=== PATIENT | female | born 1960 | race Caucasian/White ===

== ENCOUNTER 2024-08-02 13:14 | Outpatient (AMB) | payer MEDICAID, SELFPAY ==
[2024-08-02 13:29] VITALS: BP 153/96; PULSE 107; RESP 20; TEMP 36.4; O2SAT 96; BMI 36.7
--- NOTE | 2024-08-02 13:29 | ORTHONT_ITS ---
Vital signs 08/02/24 13:29 Height 1.55 m Height Method Stated Weight 88.139 kg Weight Measurement Method Standing Scale BMI 36.7 BP 153/96 H Blood Pressure Source Automatic Cuff Blood Pressure Location Right Upper Arm Position Sitting Respiration 20 Pulse 107 H Pulse Source Monitor Temp 97.5 F Temp Source Temporal Artery Scan Pulse Oximetry (%) 96 Oxygen Delivery Method Room Air Med/Allergies Allergies & Medications Allergies No Known Drug Allergies Allergy (Verified 08/02/24 13:31) Medication Reconciliation Unobtainable 08/02/24 [History Confirmed 08/02/24] Exam Exam Patient is a 63-year-old female who is in significant distress. She is extremely agitated and has pressured speech. She is very uncomfortable. She is in tears. She is using a walker and is hunched over quite a bit. Left hip is tender to palpation. Any rotation elicits significant pain. She is shortened on the left. Last x-rays are multiple. They are from March 2023. This demonstrated significant collapse of the femoral head at that time with shortening. Assessment and Plan Problem List (1) Arthritis of left hip: Status: Acute Plan: Patient is a 63-year-old female with significant left hip pain and left hip arthritis. Her biggest issue is her spine. She has significant kyphosis when she walks and has no right knee pain. She reports that there is pain shooting d own both legs since restriction sciatica. I discussed with her that a hip replacement will not fix this which is her primary complaint. I would like to get new x-rays. She will need another referral to a different spine doctor as she was unhappy with the first opinion. I have serious reservations about doing a left total hip replacement for her. She is at high risk for dislocation given the spinal deformity. In addition, she is still smoking. Lastly, the hip is the least of the worst at this point. Office Procedures GNS Level of Care Nursing/Assessment Patient Status: Initial/New Patient Nursing Assessment/Reassesment: Medication Reconciliation, Update PMH in EMR and Vital Signs Coordination of Care: Complex Care/Chronic Disease 5 or more, Education Complex Pt/Fam, Consent,records obtained, informed consent, Results/Orders obtained and Staff clarify orders New Patient Charge New Patient Point Assignment: 1104 New Patient Point Charge: COMMODITY DIRECTOR Level 3 ([id number]) MA Intake Visit Data Collection New Patient or Established: New Patient (never been to [facility]) Reason for Visit:: LEFT HIP PAIN Seen by Clinical Staff ONLY (RN/MA): No Verbal consent obtained for Telemed visit?: No Hospice Volunteer Required: No PCP or OBGYN visit in last 3 months: Yes Hx Now: No Do You Feel Safe at Home: Yes Authorities Contacted: N/A Questionairres Past Medical History Past Medical History Have you ever been diagnosed with any of the following: Subjective Visit Visit for: new patient and hip Immunization / Flu Flu Vaccine in the Last 12 Months: No Flu Vaccine Exclusion Criteria: Refused by Patient History of Present Illness Chief complaint: LEFT HIP PAIN Date of injury / onset of symptoms: NAYAN Bills is a 63-year-old female with severe left hip pain and left hip arthritis. She also has known spinal stenosis and is open SPECT deformity. She has significant kyphosis when she walks and uses a walker. She is seeing a previous spine surgeon who recommended surgery. He wanted to do her spine After her hip. I am not comfortable doing this as kyphosis despite significant. In addition, she is writhing in pain. She cannot get comfortable reports that this pain shooting down both legs At rest. Personal History Occupation: DISABLED Red flag PMH: smoker, cigarettes qd (specify) and BMI BMI Counceling provided: Yes Pain Pain level (0-10): 10 Pain duration: CONSTANT Pain location: groin Pain quality: sharp, dull, aching, burning and shocking Pain timing: night, increases with activity and stairs Associated signs & symptoms: numbness, weakness and stiffness Ambulatory data Ambulatory device: walker Treatments Improvement with previous injections: No Improvement with PT: No Improvement with NSAIDS: no Review of Systems Review of Systems: All systems negative unless otherwise noted in HPI.
== END 2024-08-02 13:56 | disposition home or self-care (01) ==
PROVIDERS: PCP Orthopaedic Surgery Orthopaedic Surgery of the Spine; Referring Provider Orthopaedic Surgery Orthopaedic Surgery of the Spine; Supervising Provider Orthopaedic Surgery Adult Reconstructive Orthopaedic Surgery; Visit Provider Orthopaedic Surgery Adult Reconstructive Orthopaedic Surgery
DX: M16.12 Unilateral primary osteoarthritis, left hip (principal); M25.552 Pain in left hip; M48.00 Spinal stenosis, site unspecified
CPT/HCPCS: 99203; G0463

== ENCOUNTER 2024-11-14 14:57 | Outpatient (AMB) | payer MEDICAID, SELFPAY ==
--- NOTE | 2024-11-14 15:22 | ORTHONT_ITS ---
Vital signs 11/14/24 15:23 Height 1.55 m Height Method Stated Weight 93.638 kg Weight Measurement Method Standing Scale BMI 38.9 BP 148/78 H Blood Pressure Source Automatic Cuff Blood Pressure Location Left Upper Arm Position Sitting Respiration 18 Pulse 109 H Pulse Source Monitor Temp 96.8 F Temp Source Temporal Artery Scan Pulse Oximetry (%) 92 L Oxygen Delivery Method Room Air Med/Allergies Allergies & Medications Allergies No Known Drug Allergies Allergy (Verified 11/14/24 15:24) Medication Reconciliation Unobtainable 08/02/24 [History Confirmed 11/14/24] Exam Exam Patient is a 63-year-old female who is in significant distress. She is extremely agitated and has pressured speech. She is very uncomfortable. She is in tears. She is using a walker and is hunched over quite a bit. Left hip is tender to palpation. Any rotation elicits significant pain. She is shortened on the left. Xrays demonstrate significant collapse of the femoral head. 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 Assessment and Plan Problem List (1) Arthritis of left hip: Status: Acute Plan: Patient is a 63-year-old female with significant left hip pain and left hip arth ritis. She has significant kyphosis when she walks and is in over 45 degrees of kyphosis. She reports that there is pain shooting down both legs. I discussed with her that a hip replacement will not fix this which is her primary complaint. She has multiple issues that Would prevent her from getting a total hip replacement. She has severe COPD and is still smoking. She also has significant acetabular erosion at this point and is significantly short on the left. Given that she walks with 45 degrees of kyphosis I do worry that she is at extremely high risk for complications. Furthermore, she cannot quit smoking and I think she is at extremely high risk for infection at this point. I do think she would likely benefit from a spine surgery first as she is in so much kyphosis. At this point I would [facility]I have given her the names of surgeons in the area. I discussed with her that she is going to be at extremely high risk for surgery and that I would recommend getting her medical issues in her spine addressed first given the fact that she Has significant kyphosis. The patient had A total hip replacement evaluation in [place]. They told Her that she would need [facility] and I would agree with this. She is at high risk for complications and she needs to get both the back addressed as well as her hip. Office Procedures GNS Level of Care Nursing/Assessment Patient Status: Established Patient Nursing Assessment/Reassesment: Medication Reconciliation, Update PMH in EMR and Vital Signs Coordination of Care: Complex Care and Chronic Disease 1-5, Education Complex Pt/Fam, Consent,records obtained, informed consent, Results/Orders obtained and Staff clarify orders Established Patient Charge Established Patient Point Assignment: 95 Established Patient Point Charge: EP Level 3 (80-115) MA Intake Visit Data Collection New Patient or Established: Established Patient (seen at [facility] within 3 years) Reason for Visit:: FOLLOW UP Seen by Clinical Staff ONLY (RN/MA): No Verbal consent obtained for Telemed visit?: No Hide Measuring Machine Operator Required: No PCP or OBGYN visit in last 3 months: Yes Hx Now: No Do You Feel Safe at Home: Yes Authorities Contacted: N/A Questionairres Past Medical History Past Medical History Have you ever been diagnosed with any of the following: Respiratory Problems Smoking: No Smoking Exposure: No Subjective Visit Visit for: follow up visit Immunization / Flu Flu Vaccine in the Last 12 Months: No Flu Vaccine Exclusion Criteria: No Exclusion Criteria History of Present Illness Chief complaint: LEFT HIP PAIN Date of injury / onset of symptoms: NAYAN Bills is a 63-year-old female with severe left hip pain and left hip arthritis. She also has known spinal stenosis and is open SPECT deformity. She has significant kyphosis when she walks and uses a walker. She is seeing a previous spine surgeon who recommended surgery. He wanted to do her spine After her hip. I am not comfortable doing this as kyphosis despite significant. In addition, she is writhing in pain. She cannot get comfortable reports that this pain shooting down both legs At rest. She has significant pain in her hip. Personal History Occupation: DISABLED Red flag PMH: smoker BMI Counceling provided: Yes Pain Pain level (0-10): 6 Pain duration: COMES AND GOES Pain location: inside (medial) and outside (lateral) Pain quality: sharp, dull and aching Pain timing: increases with activity Associated signs & symptoms: weakness Ambulatory data Ambulatory device: walker Treatments Improvement with previous injections: No Improvement with PT: No Improvement with NSAIDS: no Review of Systems Review of Systems: All systems negative unless otherwise noted in HPI.
[2024-11-14 15:23] VITALS: BP 148/78; PULSE 109; RESP 18; TEMP 36; O2SAT 92; BMI 38.9
== END 2024-11-14 15:42 | disposition home or self-care (01) ==
PROVIDERS: PCP Orthopaedic Surgery Orthopaedic Surgery of the Spine; Referring Provider Orthopaedic Surgery Orthopaedic Surgery of the Spine; Supervising Provider Orthopaedic Surgery Adult Reconstructive Orthopaedic Surgery; Visit Provider Orthopaedic Surgery Adult Reconstructive Orthopaedic Surgery
DX: M16.12 Unilateral primary osteoarthritis, left hip (principal); M25.552 Pain in left hip; M40.209 Unspecified kyphosis, site unspecified; M48.00 Spinal stenosis, site unspecified; J44.9 Chronic obstructive pulmonary disease, unspecified
CPT/HCPCS: 99213; G0463

== ENCOUNTER → 2025-06-18 | Outpatient (CLI) | payer MEDICAID, SELFPAY ==
--- NOTE | 2025-06-18 15:00 | XR_ITS ---
Examination: CT pelvis without intravenous contrast. 2-D sagittal and coronal reconstructions. Date and time of exam: June 18, 2025, 1517 hours INDICATIONS: Diagnosis unilateral primary osteoarthritis left hip, left hip pain several years CTDI: vol (mGy) : 10.5 DLP: (mGycm) : 361 Technique: Multiple 3 mm axial sections of the pelvis have been obtained with the 64 slice high resolution scanner. 2-D sagittal and coronal reconstructions. Low dose protocols were performed. One or more of the following dose reduction techniques were used; automated exposure control, adjustment of the mA and/or KV according to patient size, use of iterative reconstruction technique. Findings: Moderate osteopenia Advanced left hip osteoarthritis, severe narrowing left hip joint Significant subarticular cyst formation, suspicious for avascular necrosis involving left femoral head Moderate narrowing right hip joint Bones of the pelvis intact IMPRESSION: Advanced left hip osteoarthritis, severe narrowing left hip joint Suspicious for avascular necrosis left femoral head
== END | disposition home or self-care (01) ==
LOC: CCTX 14:55
PROVIDERS: PCP Family Medicine; Referring Provider Orthopaedic Surgery; Visit Provider Orthopaedic Surgery
DX: M16.12 Unilateral primary osteoarthritis, left hip (principal); M25.852 Other specified joint disorders, left hip
CPT/HCPCS: 72192